=== PATIENT | female | born 1935 | race Caucasian/White ===

== ENCOUNTER 2017-02-16 17:48 | Emergency (ER) | payer MEDICARE, BC ==
[~2017-02-16] VITALS: Ht 165.1 cm; Wt 56.8 kg
[~2017-02-16 17:48] MED LIST: AFRIN NASAL SPR15 ML; AMLODIPINE BESYL5 MG PO; ASPIRIN PO; AVAPRO150 MG PO; CIPRO PO; CORAL CALCIUM PO; COZAAR PO; COZAAR100 MG PO; DARVOCET-N 1001 TAB PO; DIGOX0.125 MG PO; DIGOXIN125 MCG PO; EPOETIN ALFA; FLUCONAZOLE150 M1 PO; LANOXIN PO; LANOXIN125 MCG PO; LORTAB 5/500 TA1 TA1 PO; MACROBID100 M1 PO; MAIL ORDER PHARMACY; MEDROL DOSEPAK4 MG PO; MEDROL PO; NORCO 5/325 TAB1 TAB PO; NORVASC PO; OMEPRAZOLE40 MG PO; PLAQUENIL200 MG PO; PROTONIX PO; PYRIDIUM PO; SELENIUM PO; VIT B1 PO; VIT C PO; VIT E PO; VITAL-D RX TABL1 TAB PO; VITAMIN D-32000 UNIT PO; ZOFRAN ODT4 MG PO; ZYRTEC PO
[2017-02-16 19:11] LABS: URINE SOURCE CLEAN CATCH
[2017-02-16 19:13] LABS: URINE APPEARANCE CLEAR; URINE BILIRUBIN NEG (NEG); URINE BLOOD TRACE-LYSED (NEG); URINE COLOR YELLOW; URINE GLUCOSE NEG (NORM); URINE KETONE NEG (NEG); URINE LEUKOCYTE ESTERASE 3+ (NEG); URINE NITRATE NEG (NEG); URINE PH 6.5 (5-8); URINE PROTEIN NEG (NEG); URINE SPECIFIC GRAVITY <=1.005 (1.003-1.035); URINE UROBILINOGEN 0.2 MG/DL (NORM)
[2017-02-16 19:14] LABS: MICRO INDICATED? YES; URINE RBC 0-2 /[HPF] (0-2); URINE WBC 25-50 /[HPF] (0-5)
[2017-02-16 19:15] LABS: CULTURE INDICATED? YES; URINE BACTERIA 1+ (NEG); URINE SQUAMOUS EPITHELIAL CELL FEW /[HPF]
[2017-02-16 20:49] LABS: BUN/CREATININE RATIO 14.61; CALCIUM SERUM 9.7 mg/dL (8.4-10.2); CREATININE SERUM 1.3 mg/dL (0.6-1.4); GLOM FILT RATE Estimated 38.7 mL/min (>60); POTASSIUM 4.1 mmol/L (3.5-5.1)
== END 2017-02-16 21:41 | disposition home or self-care (01) ==
LOC: SED 17:48
PROVIDERS: Nurse Practitioner Family
DX: B02.9 Zoster without complications (principal); N39.0 Urinary tract infection, site not specified; N18.9 Chronic kidney disease, unspecified; Z88.0 Allergy status to penicillin; Z88.2 Allergy status to sulfonamides; Z88.6 Allergy status to analgesic agent; Z79.899 Other long term (current) drug therapy
CPT/HCPCS: 36415; 80048; 81003; 87086; 99283